=== PATIENT | male | born 1960 | race Caucasian/White ===

== ENCOUNTER 2018-04-11 15:37 | Emergency (ER) | payer OTHER ==
[~2018-04-11] VITALS: Ht 195.6 cm; Wt 98.4 kg
[~2018-04-11 15:37] MED LIST: CYCL10 PO; IBUP400 PO; METF500 PO; NAPR550 PO; OMEP20ER PO; OXYACE5T PO; RXCYCL10 PO
[2018-04-11] MEDS ORDERED: GLIM2 PO (15:46)
== END 2018-04-11 17:42 | disposition home or self-care (01) ==
LOC: ER 15:37
DX: R22.1 Localized swelling, mass and lump, neck (principal); E11.9 Type 2 diabetes mellitus without complications; F17.200 Nicotine dependence, unspecified, uncomplicated; Z79.899 Other long term (current) drug therapy; Z79.84 Long term (current) use of oral hypoglycemic drugs
CPT/HCPCS: 70491; 71046; 99284; Q9967

== ENCOUNTER 2018-04-22 14:21 | Emergency (ER) | payer OTHER ==
[~2018-04-22] VITALS: Ht 195.6 cm; Wt 98.4 kg
[~2018-04-22 14:21] MED LIST changes: +GLIM2 PO
[2018-04-22] MEDS ORDERED: INSULIN (15:14)
[2018-04-22 15:17] LABS: BASOPHILS ABSOLUTE AUTO 0.08 K/mm3 (0.00-0.23); BASOPHILS PERCENT AUTO 1 % (0-2); EOSINOPHILS ABSOLUTE AUTO 0.53 K/mm3 (0.00-0.68); EOSINOPHILS PERCENT AUTO 6 % (0-6); Hematocrit 41.1 % (37.0-53.0); Hemoglobin 13.6 g/dL (13.5-17.5); IMMATURE GRAN ABSOLUTE AUTO 0.05 K/mm3 (0.00-0.10); IMMATURE GRAN PERCENT AUTO 1 % (0-1); LYMPHOCYTES ABSOLUTE AUTO 1.81 K/mm3 (0.84-5.20); LYMPHOCYTES PERCENT AUTO 20 % (21-46); MONOCYTES PERCENT AUTO 10 % (4-13); Mean Corpuscular HGB 27.2 pg (26.0-34.0); Mean Corpuscular HGB Conc 33.1 g/dL (31.5-36.5); Mean Corpuscular Volume 82 fL (80-100); Mean Platelet Volume 10.2 fL (9.1-12.4); NEUTROPHILS ABSOLUTE AUTO 5.51 K/mm3 (1.96-9.15); NEUTROPHILS PERCENT AUTO 62 % (41-73); Platelet Count 288 K/mm3 (150-400); RDW Coefficient Variation 12.7 % (11.7-14.2); RDW Standard Deviation 37.9 fL (35.1-46.3); White Blood Cell Count 8.88 K/mm3 (4.00-11.30)
[2018-04-22 15:29] LABS: International Normalized Ratio 1.06; Prothrombin Time Results 10.9 Sec (9.7-11.5)
[2018-04-22 15:40] LABS: Alanine Aminotransfer (ALT/SGP 25 U/L (12-78); Albumin, Blood 3.7 g/dL (3.4-5.0); Albumin/Globulin Ratio 0.8 (0.8-1.8); Alk Phos 80 U/L (50-136); Anion Gap 11 mmol/L (6-16); Aspartate Aminotrans (AST/SGOT 14 U/L (12-37); Bilirubin, Total 0.3 mg/dL (0.1-1.0); Blood Urea Nitrogen 20 mg/dL (8-24); Bun/Creatinine Ratio 18.2 (12.0-20.0); CO2, Blood 23 mmol/L (21-32); Calcium, Blood 9.6 mg/dL (8.5-10.1); Chloride, Blood 106 mmol/L (98-108); Ethanol (Alcohol), Blood, Med <3 mg/dL; Globulin, Blood 4.4 g/dL (2.2-4.0); Glomerular Filtration Rate >60 (60-); Glucose, Blood 124 mg/dL (70-99); Potassium, Blood 4.6 mmol/L (3.5-5.5); Sodium, Blood 140 mmol/L (136-145); Total Protein, Blood 8.1 g/dL (6.4-8.2)
[2018-04-22] MEDS ORDERED: Augmentin 875-1 EACH PO (16:50)
[2018-04-22] MEDS ORDERED: PSEU120ER PO (16:50)
== END 2018-04-22 17:00 | disposition home or self-care (01) ==
LOC: ER 14:21
PROVIDERS: Emergency Medicine
DX: J32.0 Chronic maxillary sinusitis (principal); E11.9 Type 2 diabetes mellitus without complications; F17.200 Nicotine dependence, unspecified, uncomplicated; Z79.899 Other long term (current) drug therapy; Z79.84 Long term (current) use of oral hypoglycemic drugs
CPT/HCPCS: 36415; 70450; 80053; 85025; 85610; 85730; 93005; 93010; G0480

== ENCOUNTER 2018-05-13 19:41 | Emergency (ER) | payer OTHER ==
[~2018-05-13] VITALS: Ht 195.6 cm; Wt 99.8 kg
[~2018-05-13 19:41] MED LIST changes: +Augmentin 875-1 EACH PO; +INSULIN; +PSEU120ER PO
[2018-05-13 20:51] LABS: BASOPHILS ABSOLUTE AUTO 0.09 K/mm3 (0.00-0.23); BASOPHILS PERCENT AUTO 1 % (0-2); EOSINOPHILS ABSOLUTE AUTO 0.43 K/mm3 (0.00-0.68); EOSINOPHILS PERCENT AUTO 3 % (0-6); Hematocrit 46.1 % (37.0-53.0); Hemoglobin 15.3 g/dL (13.5-17.5); IMMATURE GRAN ABSOLUTE AUTO 0.04 K/mm3 (0.00-0.10); IMMATURE GRAN PERCENT AUTO 0 % (0-1); LYMPHOCYTES ABSOLUTE AUTO 3.11 K/mm3 (0.84-5.20); LYMPHOCYTES PERCENT AUTO 24 % (21-46); MONOCYTES ABSOLUTE AUTO 1.23 K/mm3 (0.16-1.47); MONOCYTES PERCENT AUTO 10 % (4-13); Mean Corpuscular HGB 26.9 pg (26.0-34.0); Mean Corpuscular HGB Conc 33.2 g/dL (31.5-36.5); Mean Corpuscular Volume 81 fL (80-100); NEUTROPHILS ABSOLUTE AUTO 7.95 K/mm3 (1.96-9.15); NEUTROPHILS PERCENT AUTO 62 % (41-73); Platelet Count 264 K/mm3 (150-400); RDW Coefficient Variation 13.2 % (11.7-14.2); Red Blood Cell Count 5.69 M/mm3 (4.30-5.90); White Blood Cell Count 12.85 K/mm3 (4.00-11.30)
[2018-05-13 21:05] LABS: Alanine Aminotransfer (ALT/SGP 40 U/L (12-78); Albumin, Blood 3.9 g/dL (3.4-5.0); Albumin/Globulin Ratio 0.8 (0.8-1.8); Alk Phos 71 U/L (50-136); Anion Gap 12 mmol/L (6-16); Aspartate Aminotrans (AST/SGOT 32 U/L (12-37); Bilirubin, Total 0.4 mg/dL (0.1-1.0); Blood Urea Nitrogen 24 mg/dL (8-24); Bun/Creatinine Ratio 25.1 (12.0-20.0); CO2, Blood 20 mmol/L (21-32); Chloride, Blood 105 mmol/L (98-108); Creatinine, Blood 0.96 mg/dL (0.60-1.20); Globulin, Blood 4.6 g/dL (2.2-4.0); Glomerular Filtration Rate >60 (60-); Glucose, Blood 103 mg/dL (70-99); Potassium, Blood 4.7 mmol/L (3.5-5.5); Sodium, Blood 137 mmol/L (136-145); Total Protein, Blood 8.5 g/dL (6.4-8.2); Troponin I <0.015 ng/mL (0.000-0.040)
== END 2018-05-13 22:00 | disposition home or self-care (01) ==
LOC: ER 19:41
PROVIDERS: Emergency Medicine
DX: R10.13 Epigastric pain (principal); R11.2 Nausea with vomiting, unspecified; E11.9 Type 2 diabetes mellitus without complications; F17.200 Nicotine dependence, unspecified, uncomplicated; Z79.899 Other long term (current) drug therapy; Z79.84 Long term (current) use of oral hypoglycemic drugs
CPT/HCPCS: 80053; 83690; 84484; 85025; 93005; 93010; 96374; 99284; J2405; J7030

== ENCOUNTER 2018-05-19 09:52 | Emergency (ER) | payer OTHER ==
[~2018-05-19] VITALS: Ht 195.6 cm; Wt 99.8 kg
[~2018-05-19 09:52] MED LIST changes: -METF500 PO; +METF850 PO; -OMEP20ER PO; +OMEPRAZOLE MAGN20 MG PO
[2018-05-19] MEDS ORDERED: GABA300 PO (10:08)
[2018-05-19] MEDS ORDERED: BASAGLAR K100 UNIT/1 SC (10:10)
[2018-05-19] MEDS ORDERED: HYDR1TAB94 PO (10:11)
[2018-05-19] MEDS ORDERED: Zofran4 MG PO (10:12)
[2018-05-19 10:20] LABS: BASOPHILS ABSOLUTE AUTO 0.09 K/mm3 (0.00-0.23); BASOPHILS PERCENT AUTO 1 % (0-2); EOSINOPHILS ABSOLUTE AUTO 0.34 K/mm3 (0.00-0.68); EOSINOPHILS PERCENT AUTO 4 % (0-6); Hematocrit 42.5 % (37.0-53.0); Hemoglobin 14.2 g/dL (13.5-17.5); IMMATURE GRAN ABSOLUTE AUTO 0.03 K/mm3 (0.00-0.10); IMMATURE GRAN PERCENT AUTO 0 % (0-1); LYMPHOCYTES ABSOLUTE AUTO 1.72 K/mm3 (0.84-5.20); LYMPHOCYTES PERCENT AUTO 19 % (21-46); MONOCYTES ABSOLUTE AUTO 0.96 K/mm3 (0.16-1.47); MONOCYTES PERCENT AUTO 11 % (4-13); Mean Corpuscular HGB 27.5 pg (26.0-34.0); Mean Corpuscular HGB Conc 33.4 g/dL (31.5-36.5); Mean Corpuscular Volume 82 fL (80-100); Mean Platelet Volume 10.3 fL (9.1-12.4); NEUTROPHILS ABSOLUTE AUTO 5.71 K/mm3 (1.96-9.15); NEUTROPHILS PERCENT AUTO 65 % (41-73); Platelet Count 226 K/mm3 (150-400); RDW Coefficient Variation 12.7 % (11.7-14.2); RDW Standard Deviation 38.2 fL (35.1-46.3); Red Blood Cell Count 5.16 M/mm3 (4.30-5.90); White Blood Cell Count 8.85 K/mm3 (4.00-11.30)
[2018-05-19 10:44] LABS: Alanine Aminotransfer (ALT/SGP 24 U/L (12-78); Albumin, Blood 3.7 g/dL (3.4-5.0); Albumin/Globulin Ratio 0.8 (0.8-1.8); Alk Phos 73 U/L (50-136); Anion Gap 8 mmol/L (6-16); Aspartate Aminotrans (AST/SGOT 15 U/L (12-37); Bilirubin, Total 0.4 mg/dL (0.1-1.0); Blood Urea Nitrogen 15 mg/dL (8-24); Bun/Creatinine Ratio 13.4 (12.0-20.0); CO2, Blood 28 mmol/L (21-32); Calcium, Blood 9.5 mg/dL (8.5-10.1); Chloride, Blood 102 mmol/L (98-108); Creatinine, Blood 1.12 mg/dL (0.60-1.20); Globulin, Blood 4.4 g/dL (2.2-4.0); Glomerular Filtration Rate >60 (60-); Glucose, Blood 190 mg/dL (70-99); Sodium, Blood 138 mmol/L (136-145); Total Protein, Blood 8.1 g/dL (6.4-8.2)
[2018-05-19] MEDS ORDERED: Miralax17 GM PO (12:29)
[2018-05-21] MEDS ORDERED: ALEVE220 MG PO (14:55)
== END 2018-05-19 13:01 | disposition home or self-care (01) ==
LOC: ER 09:52
PROVIDERS: Emergency Medicine
DX: K59.03 Drug induced constipation (principal); R10.32 Left lower quadrant pain; T40.2X5A Adverse effect of other opioids, initial encounter; T47.4X5A Adverse effect of other laxatives, initial encounter; C80.1 Malignant (primary) neoplasm, unspecified; E11.9 Type 2 diabetes mellitus without complications; F17.210 Nicotine dependence, cigarettes, uncomplicated; Z79.4 Long term (current) use of insulin; Z79.899 Other long term (current) drug therapy
CPT/HCPCS: 36415; 74022; 80053; 82947; 83690; 85025; 96374; 96375; 99284-25; J2765; J3010; J7030

== ENCOUNTER 2018-07-13 00:17 | Day surgery (SDC) | payer OTHER ==
[~2018-07-13 00:17] MED LIST changes: +ALEVE220 MG PO; +BASAGLAR K100 UNIT/1 SC; +GABA300 PO; +HYDR1TAB94 PO; +Miralax17 GM PO; +Zofran4 MG PO
[2018-07-13] MEDS ORDERED: NYST237S MT (10:49)
[2018-07-13] MEDS ORDERED: FLUC200 PO (10:49)
[2018-07-13] MEDS ORDERED: CLON.2 PO (10:51)
[2018-07-13] MEDS ORDERED: [UNRECOGNIZED DRUG - OTHER] PO (10:51)
[2018-07-13] MEDS ORDERED: LOSA50 PO (10:51)
== END 2018-07-13 10:03 | disposition home or self-care (01) ==
LOC: ATC 00:17
DX: C09.9 Malignant neoplasm of tonsil, unspecified (principal); C76.0 Malignant neoplasm of head, face and neck; C77.0 Secondary and unspecified malignant neoplasm of lymph nodes of head, face and neck; F17.210 Nicotine dependence, cigarettes, uncomplicated
CPT/HCPCS: 96360; J7030

== ENCOUNTER 2018-07-14 00:21 | Day surgery (SDC) | payer OTHER ==
[~2018-07-14 00:21] MED LIST changes: +CLON.2 PO; +FLUC200 PO; +LOSA50 PO; +NYST237S MT; +[UNRECOGNIZED DRUG - OTHER] PO
== END 2018-07-14 11:17 | disposition home or self-care (01) ==
LOC: ATC 00:21
DX: C09.9 Malignant neoplasm of tonsil, unspecified (principal); C76.0 Malignant neoplasm of head, face and neck; C77.0 Secondary and unspecified malignant neoplasm of lymph nodes of head, face and neck; F17.210 Nicotine dependence, cigarettes, uncomplicated
CPT/HCPCS: 96360; J7030

== ENCOUNTER 2018-07-16 10:07 | Day surgery (SDC) | payer OTHER ==
[~2018-07-16] VITALS: Ht 170.2 cm; Wt 94.3 kg
== END 2018-07-16 12:58 | disposition home or self-care (01) ==
LOC: ORSCMMR 10:07 → ORD 11:30 → ORSCMMR 12:58
PROVIDERS: Surgery
PROC: 0DH63UZ Insertion of Feeding Device into Stomach, Percutaneous Approach (ICD-10-PCS; principal; 2018-07-16 11:30)
DX: C76.0 Malignant neoplasm of head, face and neck (principal); R13.12 Dysphagia, oropharyngeal phase; E11.22 Type 2 diabetes mellitus with diabetic chronic kidney disease; I12.9 Hypertensive chronic kidney disease with stage 1 through stage 4 chronic kidney disease, or unspecified chronic kidney disease; N18.9 Chronic kidney disease, unspecified; F17.210 Nicotine dependence, cigarettes, uncomplicated; Z79.899 Other long term (current) drug therapy
CPT/HCPCS: 82947; C1769; J0330; J0690; J1100; J2250; J2405; J3010; J7120

== ENCOUNTER 2019-05-29 12:40 | Day surgery (SDC) | payer OTHER ==
[~2019-05-29] VITALS: Ht 193 cm; Wt 86.9 kg
[~2019-05-29 12:40] MED LIST changes: +Aspirin EC81 MG PO; +Metformin HCl500 MG PO; +Neurontin600 MG PO; +OMEP20ER PO
== END 2019-05-29 16:50 | disposition home or self-care (01) ==
LOC: ORSCSDS 12:40
PROVIDERS: Internal Medicine Gastroenterology
PROC: 0DBL8ZX Excision of Transverse Colon, Via Natural or Artificial Opening Endoscopic, Diagnostic (ICD-10-PCS; principal; 2019-05-29 14:00)
PROC: 0DBN8ZX Excision of Sigmoid Colon, Via Natural or Artificial Opening Endoscopic, Diagnostic (ICD-10-PCS; principal; 2019-05-29 14:00)
PROC: 0DBH8ZX Excision of Cecum, Via Natural or Artificial Opening Endoscopic, Diagnostic (ICD-10-PCS; principal; 2019-05-29 14:00)
DX: Z12.11 Encounter for screening for malignant neoplasm of colon (principal); Z86.010 Personal history of colon polyps; D12.3 Benign neoplasm of transverse colon; D12.0 Benign neoplasm of cecum; K63.5 Polyp of colon; K64.8 Other hemorrhoids; E11.9 Type 2 diabetes mellitus without complications; Z79.84 Long term (current) use of oral hypoglycemic drugs; Z79.899 Other long term (current) drug therapy
CPT/HCPCS: 82947; 88305; J2704; J7120

== ENCOUNTER 2020-01-25 05:29 | Inpatient (IN) | payer OTHER ==
[~2020-01-25] VITALS: Ht 193 cm; Wt 86.0 kg
[2020-01-25] MEDS ORDERED: LOSA25 PO (05:47)
[2020-01-25 06:11] LABS: BASOPHILS ABSOLUTE AUTO 0.08 K/mm3 (0.00-0.23); BASOPHILS PERCENT AUTO 1 % (0-2); EOSINOPHILS PERCENT AUTO 5 % (0-6); Hematocrit 36.2 % (37.0-53.0); Hemoglobin 11.1 g/dL (13.5-17.5); IMMATURE GRAN ABSOLUTE AUTO 0.02 K/mm3 (0.00-0.10); IMMATURE GRAN PERCENT AUTO 0 % (0-1); LYMPHOCYTES PERCENT AUTO 17 % (21-46); MONOCYTES ABSOLUTE AUTO 0.71 K/mm3 (0.16-1.47); MONOCYTES PERCENT AUTO 11 % (4-13); Mean Corpuscular HGB 26.7 pg (26.0-34.0); Mean Corpuscular HGB Conc 30.7 g/dL (31.5-36.5); Mean Corpuscular Volume 87 fL (80-100); Mean Platelet Volume 10.5 fL (9.1-12.4); NEUTROPHILS ABSOLUTE AUTO 4.17 K/mm3 (1.96-9.15); NEUTROPHILS PERCENT AUTO 65 % (41-73); Platelet Count 268 K/mm3 (150-400); RDW Coefficient Variation 14.8 % (11.7-14.2); RDW Standard Deviation 47.8 fL (35.1-46.3); Red Blood Cell Count 4.15 M/mm3 (4.30-5.90); White Blood Cell Count 6.38 K/mm3 (4.00-11.30)
[2020-01-25 06:22] LABS: Albumin/Globulin Ratio 1.1 (0.8-1.8); Bilirubin, Total 0.3 mg/dL (0.1-1.0); Bun/Creatinine Ratio 24.6 (12.0-20.0); Calcium, Blood 9.1 mg/dL (8.5-10.1); Creatinine, Blood 1.34 mg/dL (0.60-1.20); Globulin, Blood 3.5 g/dL (2.2-4.0); Potassium, Blood 4.7 mmol/L (3.5-5.5); Total Protein, Blood 7.5 g/dL (6.4-8.2); Troponin I 0.324 ng/mL (0.000-0.040)
--- NOTE | 2020-01-25 11:11 | NUR ---
PT ARRIVED TO THE FLOOR AT APPROXIMATELY 1100. PT IS ALERT ORIENTED AND INDEPENDENT. NPO UNTIL DR. PEARSON CONSULTS ON PT. WILL CONTINUE TO MONITOR.
--- NOTE | 2020-01-25 11:13 | NUR ---
ECHOCARDIOGRAM COMPLETED
[2020-01-25 11:26] LABS: International Normalized Ratio 1.05; Prothrombin Time Results 11.2 Sec (9.7-11.5)
--- NOTE | 2020-01-25 15:01 | NUR ---
REPORT GIVEN TO NICOLLE CARRASQUILLO.
--- NOTE | 2020-01-25 16:18 | NUR ---
UPDATE PT ARRIVED TO UNIT AT APPROXIMATELY 1350. PT ALERT AND ORIENTED. VS STABLE. RIGHT RADIAL SITE WITH TR BAND IN PLACE WITH SLIGHT SWELLING PROXIMAL TO BAND AND NO BLEEDING. DR. PEARSON IN WITH PLANS FOR [facility] TX TO [facility] FOR CABG. PT INFORMED OF PLAN FOR TRANSFER. TRANSPORT IN TO TAKE PT. DISCUSSED WITH DR. PEARSON THE [facility] AND HE STATES NOT TO SEND PT ON [facility]TT FOR TRANSPORT BECAUSE TR BAND IS STILL IN PLACE. PT TAKEN OUT. REPORT CALLED TO RN AT [facility].
== END 2020-01-25 16:28 | disposition short-term general hospital (02) | DRG 281 ==
LOC: ER 05:29 → SURS 09:30 → PCU 13:46
PROVIDERS: Emergency Medicine; ADMIT Internal Medicine
PROC: B211YZZ Fluoroscopy of Multiple Coronary Arteries using Other Contrast (ICD-10-PCS; principal; 2020-01-25)
DX: I21.4 Non-ST elevation (NSTEMI) myocardial infarction (principal); I13.0 Hypertensive heart and chronic kidney disease with heart failure and stage 1 through stage 4 chronic kidney disease, or unspecified chronic kidney disease; N17.9 Acute kidney failure, unspecified; I25.10 Atherosclerotic heart disease of native coronary artery without angina pectoris; I50.9 Heart failure, unspecified; E11.22 Type 2 diabetes mellitus with diabetic chronic kidney disease; N18.3 Chronic kidney disease, stage 3 (moderate); E11.42 Type 2 diabetes mellitus with diabetic polyneuropathy; K21.9 Gastro-esophageal reflux disease without esophagitis; F17.210 Nicotine dependence, cigarettes, uncomplicated; Z79.82 Long term (current) use of aspirin; Z79.84 Long term (current) use of oral hypoglycemic drugs; Z86.73 Personal history of transient ischemic attack (TIA), and cerebral infarction without residual deficits
CPT/HCPCS: 36415; 36416; 71260; 76937; 80053; 82947; 83880; 84484; 85025; 85379; 85610; 85730; 93005; 93010; 93454; 96374-59; 99152; 99153; 99285-25; A9270-GY; C1769; C1894; C8929; J1644; J2060; J2250; J3010; J7030; Q9957; Q9967

== ENCOUNTER 2020-03-02 12:55 | Emergency (ER) | payer OTHER ==
[~2020-03-02] VITALS: Ht 182.9 cm; Wt 85.8 kg
[~2020-03-02 12:55] MED LIST changes: +LOSA25 PO
[2020-03-02] MEDS ORDERED: ENTRESTO 49 MG1 EACH PO (13:23)
[2020-03-02] MEDS ORDERED: ALPR.5 (13:24)
[2020-03-02 13:33] LABS: BASOPHILS ABSOLUTE AUTO 0.06 K/mm3 (0.00-0.23); BASOPHILS PERCENT AUTO 1 % (0-2); EOSINOPHILS ABSOLUTE AUTO 0.18 K/mm3 (0.00-0.68); EOSINOPHILS PERCENT AUTO 4 % (0-6); Hematocrit 34.6 % (37.0-53.0); IMMATURE GRAN ABSOLUTE AUTO 0.01 K/mm3 (0.00-0.10); IMMATURE GRAN PERCENT AUTO 0 % (0-1); LYMPHOCYTES ABSOLUTE AUTO 1.02 K/mm3 (0.84-5.20); LYMPHOCYTES PERCENT AUTO 21 % (21-46); MONOCYTES ABSOLUTE AUTO 0.54 K/mm3 (0.16-1.47); MONOCYTES PERCENT AUTO 11 % (4-13); Mean Corpuscular HGB 26.2 pg (26.0-34.0); Mean Corpuscular HGB Conc 31.8 g/dL (31.5-36.5); Mean Corpuscular Volume 82 fL (80-100); NEUTROPHILS ABSOLUTE AUTO 3.12 K/mm3 (1.96-9.15); NEUTROPHILS PERCENT AUTO 63 % (41-73); Platelet Count 201 K/mm3 (150-400); RDW Standard Deviation 38.9 fL (35.1-46.3); White Blood Cell Count 4.93 K/mm3 (4.00-11.30)
[2020-03-02 13:48] LABS: International Normalized Ratio 1.06; Prothrombin Time Results 11.3 Sec (9.7-11.5)
[2020-03-02 13:58] LABS: Albumin, Blood 3.6 g/dL (3.4-5.0); Bilirubin, Total 0.3 mg/dL (0.1-1.0); Bun/Creatinine Ratio 21.3 (12.0-20.0); Calcium, Blood 9.3 mg/dL (8.5-10.1); Creatinine, Blood 1.41 mg/dL (0.60-1.20); Globulin, Blood 3.6 g/dL (2.2-4.0); Potassium, Blood 4.3 mmol/L (3.5-5.5); Total Protein, Blood 7.2 g/dL (6.4-8.2); Troponin I 0.067 ng/mL (0.000-0.040)
== END 2020-03-02 16:11 | disposition short-term general hospital (02) ==
LOC: ER 12:55
PROVIDERS: Emergency Medicine
DX: I25.2 Old myocardial infarction (principal); E11.40 Type 2 diabetes mellitus with diabetic neuropathy, unspecified; I10 Essential (primary) hypertension; K21.9 Gastro-esophageal reflux disease without esophagitis; Z86.73 Personal history of transient ischemic attack (TIA), and cerebral infarction without residual deficits
CPT/HCPCS: 71045; 80053; 84484; 85025; 85610; 85730; 93005; 93010; 96365; 96375; 99285-25; J1644

== ENCOUNTER 2020-03-19 16:15 | Emergency (ER) | payer OTHER ==
[~2020-03-19] VITALS: Ht 193 cm; Wt 86.2 kg
[~2020-03-19 16:15] MED LIST changes: +ALPR.5; +ENTRESTO 49 MG1 EACH PO
[2020-03-19 16:40] LABS: BASOPHILS ABSOLUTE AUTO 0.08 K/mm3 (0.00-0.23); BASOPHILS PERCENT AUTO 1 % (0-2); EOSINOPHILS ABSOLUTE AUTO 0.21 K/mm3 (0.00-0.68); EOSINOPHILS PERCENT AUTO 3 % (0-6); Hematocrit 37.3 % (37.0-53.0); Hemoglobin 11.9 g/dL (13.5-17.5); IMMATURE GRAN ABSOLUTE AUTO 0.03 K/mm3 (0.00-0.10); IMMATURE GRAN PERCENT AUTO 0 % (0-1); LYMPHOCYTES ABSOLUTE AUTO 0.97 K/mm3 (0.84-5.20); LYMPHOCYTES PERCENT AUTO 13 % (21-46); MONOCYTES ABSOLUTE AUTO 0.83 K/mm3 (0.16-1.47); MONOCYTES PERCENT AUTO 11 % (4-13); Mean Corpuscular HGB 26.6 pg (26.0-34.0); Mean Corpuscular HGB Conc 31.9 g/dL (31.5-36.5); Mean Corpuscular Volume 83 fL (80-100); Mean Platelet Volume 10.8 fL (9.1-12.4); NEUTROPHILS ABSOLUTE AUTO 5.59 K/mm3 (1.96-9.15); NEUTROPHILS PERCENT AUTO 73 % (41-73); Platelet Count 194 K/mm3 (150-400); Red Blood Cell Count 4.48 M/mm3 (4.30-5.90); White Blood Cell Count 7.71 K/mm3 (4.00-11.30)
[2020-03-19 16:57] LABS: Albumin, Blood 3.7 g/dL (3.4-5.0); Albumin/Globulin Ratio 1.1 (0.8-1.8); Bilirubin, Total 0.3 mg/dL (0.1-1.0); Bun/Creatinine Ratio 20.5 (12.0-20.0); Calcium, Blood 9.1 mg/dL (8.5-10.1); Creatinine, Blood 1.46 mg/dL (0.60-1.20); Globulin, Blood 3.4 g/dL (2.2-4.0); Magnesium, Blood 1.5 mg/dL (1.6-2.4); Potassium, Blood 4.7 mmol/L (3.5-5.5); Total Protein, Blood 7.1 g/dL (6.4-8.2); Troponin I 0.087 ng/mL (0.000-0.040)
[2020-03-19] MEDS ORDERED: ATOR80 PO (18:28)
[2020-03-19] MEDS ORDERED: PANT40 PO (18:28)
[2020-03-19] MEDS ORDERED: CLOP75 PO (18:29)
[2020-03-19] MEDS ORDERED: METO100ER PO (18:29)
== END 2020-03-19 18:30 | disposition home or self-care (01) ==
LOC: ER 16:15
PROVIDERS: Emergency Medicine
DX: R55 Syncope and collapse (principal); E11.9 Type 2 diabetes mellitus without complications; I25.2 Old myocardial infarction; Z86.73 Personal history of transient ischemic attack (TIA), and cerebral infarction without residual deficits; Z79.82 Long term (current) use of aspirin; Z79.899 Other long term (current) drug therapy; F17.210 Nicotine dependence, cigarettes, uncomplicated
CPT/HCPCS: 36415; 80053; 83735; 83880; 84484; 85025; 93005; 93010; 99284-25